=== PATIENT | male | born 1960 | race Caucasian/White ===

== ENCOUNTER 2021-05-15 15:26 | Inpatient (IN) | payer MEDICARE, OTHER ==
[~2021-05-15] VITALS: Ht 182.9 cm; Wt 104.3 kg
[~2021-05-15 15:26] MED LIST: ACET325; GABA300T24; HYDHCL10EL; LIDO5TO; LISHYD1012
[2021-05-15] MEDS ORDERED: CYCL10 PO (15:53)
[2021-05-15 16:00] LABS: Hematocrit 39.3 % (37.0-53.0); Hemoglobin 13.1 g/dL (13.5-17.5); Mean Corpuscular HGB 27.5 pg (26.0-34.0); Mean Corpuscular HGB Conc 33.3 g/dL (31.5-36.5); Mean Corpuscular Volume 82 fL (80-100); Mean Platelet Volume 10.6 fL (9.1-12.4); Platelet Count 239 K/mm3 (150-400); RDW Coefficient Variation 14.6 % (11.7-14.2); RDW Standard Deviation 44.3 fL (35.1-46.3); Red Blood Cell Count 4.77 M/mm3 (4.30-5.90); White Blood Cell Count 26.21 K/mm3 (4.00-11.30)
[2021-05-15 16:13] LABS: Alanine Aminotransfer (ALT/SGP 16 U/L (12-78); Albumin, Blood 1.9 g/dL (3.4-5.0); Albumin/Globulin Ratio 0.4 (0.8-1.8); Alk Phos 207 U/L (50-136); Anion Gap 12 mmol/L (6-16); Aspartate Aminotrans (AST/SGOT 46 U/L (12-37); Blood Urea Nitrogen 29 mg/dL (8-24); Bun/Creatinine Ratio 25.4 (12.0-20.0); CO2, Blood 23 mmol/L (21-32); Calcium, Blood 8.5 mg/dL (8.5-10.1); Chloride, Blood 100 mmol/L (98-108); Creatinine, Blood 1.14 mg/dL (0.60-1.20); Globulin, Blood 4.7 g/dL (2.2-4.0); Glomerular Filtration Rate >60 (60-); Glucose, Blood 86 mg/dL (70-99); Potassium, Blood 2.8 mmol/L (3.5-5.5); Sodium, Blood 135 mmol/L (136-145); Total Protein, Blood 6.6 g/dL (6.4-8.2)
[2021-05-15 17:13] LABS: BAND PERCENT MAN 5 % (0-8); BASOPHILS PERCENT MAN 0 % (0-2); EOSINOPHILS PERCENT MAN 0 % (0-6); MONOCYTES ABSOLUTE MAN 1.57 K/mm3 (0.16-1.47); MONOCYTES PERCENT MAN 6 % (4-13); NEUTROPHILS ABSOLUTE MAN 24.63 K/mm3 (1.96-9.15); SEG NEUTROPHILS PERCENT MAN 89 % (41-73); TOTAL CELLS COUNTED 100
[2021-05-15 18:04] LABS: Bicarbonate Venous 28.1 mmol/L (24.0-30.0); PCO2 Venous 44.4 mmHg (38-42); PO2 Venous 52.4 mmHg (38-42); pH Blood Venous 7.43 (7.34-7.37)
--- NOTE | 2021-05-16 01:06 | NUR ---
PATIENT ARRIVED ONTO UNIT TODAY 05/16/21 AT 0000. COVID 19 PATIENT IS ALERT AND ORIENTED X4. PATIENT DID PRESENT WITH HIGH BP AND HR BUT WAS GIVEN IV METOPROLOL WHICH BROUGHT BOTH BACK DOWN. HE IS ON 5L NC AND HAS >90% OXYGEN SATS. HE HAS RIGHT SIDED WEAKNESS HE REPORTS FROM HAVING A NECK SURGERY "A WHILE AGO". HE IS ABLE TO WIGGLE FINGERS AND TOES WHEN ASKED. 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 HE IS CURRENTLY LAYING DOWN WITH EYES CLOSED. CALL LIGHT WITHIN REACH.
--- NOTE | 2021-05-16 03:37 | NUR ---
SHIFT SUMMARY: COVID 19 NO SIGNIFICANT CHANGES SINCE ARRIVAL TO THE UNIT. HE IS ALERT AND ORIENTED X4. HE HAS EXPIRATORY WHEEZING AND SOUNDS COARSE IN THE LUNGS. HE HAS A COUGH INTERMITTENTLY WITH SPUTUM. ENCOURAGING DEEP BREATHING AND COUGHING WHEN POSSIBLE. PATIENT DENIES CHEST PAIN. HE IS ON 5L NC WITH >90% OXYGEN SATS. PATIENT ALSO HAS WEAKNESS TO HIS RIGHT SIDE. TELE IS IN PLACE. PATIENT USES THE URNAL BY SELF PRN. HE IS CURRENTLY RESTING COMFORTABLY IN BED. CALL LIGHT WITHIN REACH.
[2021-05-16 06:19] LABS: Hematocrit 38.1 % (37.0-53.0); Hemoglobin 12.7 g/dL (13.5-17.5); Mean Corpuscular HGB 27.6 pg (26.0-34.0); Mean Corpuscular HGB Conc 33.3 g/dL (31.5-36.5); Mean Corpuscular Volume 83 fL (80-100); Mean Platelet Volume 9.9 fL (9.1-12.4); Platelet Count 242 K/mm3 (150-400); RDW Standard Deviation 45.1 fL (35.1-46.3); White Blood Cell Count 28.72 K/mm3 (4.00-11.30)
--- NOTE | 2021-05-16 06:29 | NUR ---
THIS NURSE CHECKED THE PATIENTS BP AFTER GIVING THE PATIENT A LOPRESSOR IV. PATIENTS BP WAS STILL ELEVATED. CALLED DR. VEGA FOR WHAT HE WANTED TO ORDER. 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 VEGA AGAIN AND HE PHYSICALLY CAME TO THE ROOM. DR. VEGA ORDERED AN EKG AND FOR THE PATIENT TO BE GIVEN TWO LOPRESSORS IV. PATIENT'S HR IS NOW AT 114 BPM WITH HIS BP DECREASED A SLIGHT AMOUNT. WILL CONTINUE TO MONITOR BP WELL HR ON THE HEART MONITOR. PATIENT WAS ASYMPTOMATIC DURING THE EPISODE OF >200 BPM. HE DENIED CHEST PAIN DURING THAT TIME. HE IS NOW LAYING IN BED WITH CALL LIGHT WITHIN REACH.
[2021-05-16 06:45] LABS: Alanine Aminotransfer (ALT/SGP 19 U/L (12-78); Albumin, Blood 1.8 g/dL (3.4-5.0); Albumin/Globulin Ratio 0.4 (0.8-1.8); Alk Phos 206 U/L (50-136); Anion Gap 8 mmol/L (6-16); Aspartate Aminotrans (AST/SGOT 43 U/L (12-37); Bilirubin, Total 0.7 mg/dL (0.1-1.0); Blood Urea Nitrogen 26 mg/dL (8-24); CO2, Blood 28 mmol/L (21-32); Chloride, Blood 102 mmol/L (98-108); Creatinine, Blood 0.93 mg/dL (0.60-1.20); Glomerular Filtration Rate >60 (60-); Glucose, Blood 98 mg/dL (70-99); Potassium, Blood 3.8 mmol/L (3.5-5.5); Sodium, Blood 138 mmol/L (136-145); Total Protein, Blood 6.8 g/dL (6.4-8.2)
[2021-05-16 06:55] LABS: BAND PERCENT MAN 4 % (0-8); BASOPHILS PERCENT MAN 0 % (0-2); EOSINOPHILS PERCENT MAN 0 % (0-6); LYMPHOCYTES % ATYPICAL MANUAL 1 % (0-0); LYMPHOCYTES ABSOLUTE MAN 1.72 K/mm3 (0.84-5.20); LYMPHOCYTES PERCENT MAN 5 % (21-46); MONOCYTES ABSOLUTE MAN 0.57 K/mm3 (0.16-1.47); MONOCYTES PERCENT MAN 2 % (4-13); MYELOCYTE ABSOLUTE MAN 0.28 K/mm3 (0.00-0.00); MYELOCYTE PERCENT MAN 1 % (0-0); NEUTROPHILS ABSOLUTE MAN 26.13 K/mm3 (1.96-9.15); SEG NEUTROPHILS PERCENT MAN 87 % (41-73); TOTAL CELLS COUNTED 100
--- NOTE | 2021-05-16 14:41 | NUR ---
[facility] referral received. EMR reviewed and spoke with studio operations engineer in charge in PCU. It appears transfer being worked on to [facility]. Pt asleep in room with high flow O2 on. Will attempt visit if pt is not transferred. I did not contact due to notes stating pt wanted to discuss his current health status/concerns with her prior to providers speaking with her. If pt remains at [facility] I will offer to call or do conference call to help update her and answer questions, discuss advanced care planning wishes.
--- NOTE | 2021-05-16 15:46 | NUR ---
echocardiogram complete
--- NOTE | 2021-05-16 18:27 | NUR ---
SHIFT SUMMARY PT HAS HAD NO SIGNIFICANT CHANGES T/O SHIFT. O2 REMAINS STABLE AT 95% ON 6L O2 VIA NC. NO INCREASED WOB, LUNGS DIM IN BASES, WORSE ON R SIDE. PT TO GO FOR PE R/O THIS EVENING. PLAN IS FOR PT TO CONTINUE ON IV ABX AND GO TO [facility] WHEN BED AVAILABLE.
--- NOTE | 2021-05-17 03:09 | NUR ---
SHIFT SUMMARY: COVID 19 PATIENT IS ALERT AND ORIENTED X4. HE IS STILL HAVING SOME EXPIRATORY WHEEZING AND SOUNDS COURSE IN THE LUNGS. PATIENT IS STILL COUGHING UP SCANT AMOUNTS OF SPUTUM INTERMITTENTLY. PATIENTS HR STILL WILL COME UP TO 160 BPM WHEN URINATING OR CHANGING POSITIONS. IV LOPRESSOR HAS BEEN GIVEN TO MAINTAIN A LOWER HR. HE REPORTS "FEELING BETTER TODAY THAN YESTERDAY". HE STILL HAS HIS RIGHT SIDED WEAKNESS. TELE IS IN PLACE. PATIENT USES URNAL PRN. CALL LIGHT WITHIN REACH. TELE IS IN PLACE. THE PATIENT WILL BE TRANSFERRING TO [facility] LATER TODAY.
[2021-05-17 05:10] LABS: BASOPHILS ABSOLUTE AUTO 0.13 K/mm3 (0.00-0.23); BASOPHILS PERCENT AUTO 1 % (0-2); Hematocrit 38.7 % (37.0-53.0); Hemoglobin 12.7 g/dL (13.5-17.5); LYMPHOCYTES ABSOLUTE AUTO 1.37 K/mm3 (0.84-5.20); LYMPHOCYTES PERCENT AUTO 5 % (21-46); MONOCYTES ABSOLUTE AUTO 1.37 K/mm3 (0.16-1.47); MONOCYTES PERCENT AUTO 5 % (4-13); Mean Corpuscular HGB 27.4 pg (26.0-34.0); Mean Corpuscular HGB Conc 32.8 g/dL (31.5-36.5); Mean Corpuscular Volume 83 fL (80-100); Mean Platelet Volume 9.8 fL (9.1-12.4); Platelet Count 269 K/mm3 (150-400); RDW Coefficient Variation 15.4 % (11.7-14.2); RDW Standard Deviation 46.6 fL (35.1-46.3); Red Blood Cell Count 4.64 M/mm3 (4.30-5.90); White Blood Cell Count 25.93 K/mm3 (4.00-11.30)
[2021-05-17 05:11] LABS: EOSINOPHILS PERCENT AUTO 0 % (0-6); IMMATURE GRAN ABSOLUTE AUTO 0.68 K/mm3 (0.00-0.10); IMMATURE GRAN PERCENT AUTO 3 % (0-1); NEUTROPHILS ABSOLUTE AUTO 22.38 K/mm3 (1.96-9.15); NEUTROPHILS PERCENT AUTO 86 % (41-73)
[2021-05-17 05:35] LABS: Alanine Aminotransfer (ALT/SGP 14 U/L (12-78); Albumin, Blood 1.6 g/dL (3.4-5.0); Albumin/Globulin Ratio 0.3 (0.8-1.8); Alk Phos 192 U/L (50-136); Anion Gap 3 mmol/L (6-16); Aspartate Aminotrans (AST/SGOT 27 U/L (12-37); Bilirubin, Total 0.5 mg/dL (0.1-1.0); Blood Urea Nitrogen 29 mg/dL (8-24); Bun/Creatinine Ratio 37.4 (12.0-20.0); CO2, Blood 30 mmol/L (21-32); Calcium, Blood 8.5 mg/dL (8.5-10.1); Chloride, Blood 102 mmol/L (98-108); Creatinine, Blood 0.78 mg/dL (0.60-1.20); Globulin, Blood 4.9 g/dL (2.2-4.0); Glomerular Filtration Rate >60 (60-); Glucose, Blood 101 mg/dL (70-99); Potassium, Blood 4.5 mmol/L (3.5-5.5); Sodium, Blood 135 mmol/L (136-145); Total Protein, Blood 6.5 g/dL (6.4-8.2)
[2021-05-17 06:35] LABS: BAND PERCENT MAN 5 % (0-8); BASOPHILS PERCENT MAN 0 % (0-2); EOSINOPHILS PERCENT MAN 0 % (0-6); LYMPHOCYTES ABSOLUTE MAN 1.81 K/mm3 (0.84-5.20); LYMPHOCYTES PERCENT MAN 7 % (21-46); MONOCYTES PERCENT MAN 0 % (4-13); NEUTROPHILS ABSOLUTE MAN 24.11 K/mm3 (1.96-9.15); SEG NEUTROPHILS PERCENT MAN 88 % (41-73); TOTAL CELLS COUNTED 100
--- NOTE | 2021-05-17 14:31 | NUR ---
SVT: AT ABOUT 1300 RECEIVED A CALL FROM [employer]. PT HAVING SVT WITH HR 150-160. UPON ASSESSMENT, PT DENIES CP, REPORTS ASYMPTOMATIC. VSS. HASHER OPERATOR REPORTED AT ABOUT 1308 THAT PT HR BACK TO 90-[address] HOFFMAN NOTIFIED, NO NEW ORDERS. WILL CTM.
--- NOTE | 2021-05-17 17:11 | NUR ---
SUMMARY: PT IS A/O, VSS. NO ACUTE CHANGE IN TELE SINCE PT HAD SVT. PT CONTINUES TO BE WEAK AND NEEDS ASSISTANCE WITH TURNING. ABLE TO WEAN PT TO 3L O2 VIA NC, SP02 95%. PT AWAITING TANSFER TO [facility] PENDING. WILL CTM AND REPORT TO GIANCARLO RN.
[2021-05-18 05:09] LABS: BASOPHILS ABSOLUTE AUTO 0.11 K/mm3 (0.00-0.23); BASOPHILS PERCENT AUTO 0 % (0-2); EOSINOPHILS PERCENT AUTO 0 % (0-6); Hematocrit 37.1 % (37.0-53.0); Hemoglobin 12.1 g/dL (13.5-17.5); IMMATURE GRAN ABSOLUTE AUTO 0.88 K/mm3 (0.00-0.10); IMMATURE GRAN PERCENT AUTO 3 % (0-1); LYMPHOCYTES ABSOLUTE AUTO 1.27 K/mm3 (0.84-5.20); LYMPHOCYTES PERCENT AUTO 5 % (21-46); MONOCYTES ABSOLUTE AUTO 1.46 K/mm3 (0.16-1.47); MONOCYTES PERCENT AUTO 5 % (4-13); Mean Corpuscular HGB 27.3 pg (26.0-34.0); Mean Corpuscular HGB Conc 32.6 g/dL (31.5-36.5); Mean Corpuscular Volume 84 fL (80-100); Mean Platelet Volume 9.9 fL (9.1-12.4); NEUTROPHILS PERCENT AUTO 87 % (41-73); Platelet Count 282 K/mm3 (150-400); RDW Coefficient Variation 15.1 % (11.7-14.2); RDW Standard Deviation 46.2 fL (35.1-46.3); Red Blood Cell Count 4.43 M/mm3 (4.30-5.90); White Blood Cell Count 27.42 K/mm3 (4.00-11.30)
[2021-05-18 05:29] LABS: Albumin, Blood 1.6 g/dL (3.4-5.0); Anion Gap 4 mmol/L (6-16); Blood Urea Nitrogen 29 mg/dL (8-24); Bun/Creatinine Ratio 42.4 (12.0-20.0); CO2, Blood 28 mmol/L (21-32); Calcium, Blood 7.7 mg/dL (8.5-10.1); Chloride, Blood 104 mmol/L (98-108); Creatinine, Blood 0.68 mg/dL (0.60-1.20); Glomerular Filtration Rate >60 (60-); Glucose, Blood 105 mg/dL (70-99); Phosphorus, Blood 3.2 mg/dL (2.5-4.9); Potassium, Blood 4.3 mmol/L (3.5-5.5); Sodium, Blood 136 mmol/L (136-145)
--- NOTE | 2021-05-18 06:34 | NUR ---
SUMMARY PT REMAINS OF 3L N/C.PENDING EVENTUAL TRANSFER TO [facility], BUT HAVE NOT RECEIVED WORD OF WHEN ROOM MAY BECOME AVAILABLE.
[2021-05-18 09:56] LABS: SARS-Cov-2 (COVID-19) PCR, MMC NEGATIVE (NEGATIVE)
[2021-05-18 11:45] LABS: Vancomycin, Trough 13.2 ug/mL (5.0-10.0)
--- NOTE | 2021-05-18 16:56 | NUR ---
TRANSFER SUMMARY: PATIENT WASTRANSFERED VIA [facility] VIA STRETCHER ON 3 L VIA AL AT 1319. PATIENT DENIES CHEST PAIN, FERRIS RESOLVED. VANCO RUNNING PUMP WAS GIVEN TO BRING BACK, PATIENT PERSONAL BELONGINGS SENT WITH PATIENT. PATIENT WAS ALERT AND ORIENTED, UNDERSTOOD WHY HE WAS BEING TRANSFERRED TO [place]. PATIENT HAD NO FURTHER QUESTIONS OR CONCERNS.
== END 2021-05-18 13:19 | DRG 871 ==
LOC: ER 15:26 → ERHOLD 19:43 → SURS 19:43
PROVIDERS: Family Medicine; Nurse Practitioner Acute Care; Pharmacist; Student in an Organized Health Care Education/Training Program; ADMIT Hospitalist
PROC: 3E0333Z Introduction of Anti-inflammatory into Peripheral Vein, Percutaneous Approach (ICD-10-PCS; principal; 2021-05-15)
DX: A41.89 Other specified sepsis (principal); U07.1 COVID-19; J12.82 Pneumonia due to coronavirus disease 2019; J96.01 Acute respiratory failure with hypoxia; J86.9 Pyothorax without fistula; C15.4 Malignant neoplasm of middle third of esophagus; I47.2 Ventricular tachycardia; K92.1 Melena; E87.1 Hypo-osmolality and hyponatremia; L02.213 Cutaneous abscess of chest wall; I24.8 Other forms of acute ischemic heart disease; C72.0 Malignant neoplasm of spinal cord; R65.20 Severe sepsis without septic shock; D72.829 Elevated white blood cell count, unspecified; J45.909 Unspecified asthma, uncomplicated; T38.0X5A Adverse effect of glucocorticoids and synthetic analogues, initial encounter; E87.6 Hypokalemia; K59.00 Constipation, unspecified; E66.9 Obesity, unspecified; I10 Essential (primary) hypertension; D63.8 Anemia in other chronic diseases classified elsewhere; G89.29 Other chronic pain; B95.61 Methicillin susceptible Staphylococcus aureus infection as the cause of diseases classified elsewhere; M54.9 Dorsalgia, unspecified; Z77.090 Contact with and (suspected) exposure to asbestos; Z87.891 Personal history of nicotine dependence; Z88.0 Allergy status to penicillin; Z98.890 Other specified postprocedural states; Z68.31 Body mass index [BMI] 31.0-31.9, adult
CPT/HCPCS: 36415; 70496; 70498; 71045; 71250; 71260; 80053; 80069; 80202; 82272; 82378; 82803; 82947; 83605; 83735; 83880; 84145; 84484; 85025; 85379; 87040; 87077; 87147; 87186; 93005; 93010; 93306; 96365-59; 96375-59; 99285-25; A9270; C9113; J0692; J1100; J1650; J2405; J2765; J3010; J3370; J3475; J3480; J7030; J7050; Q9967; U0004

== ENCOUNTER 2021-08-12 20:41 | Emergency (ER) | payer MEDICARE, OTHER ==
[~2021-08-12] VITALS: Ht 180.3 cm; Wt 95.7 kg
[~2021-08-12 20:41] MED LIST changes: +CYCL10 PO
[2021-08-12 22:11] LABS: BASOPHILS ABSOLUTE AUTO 0.08 K/mm3 (0.00-0.23); BASOPHILS PERCENT AUTO 1 % (0-2); EOSINOPHILS ABSOLUTE AUTO 0.26 K/mm3 (0.00-0.68); EOSINOPHILS PERCENT AUTO 2 % (0-6); Hematocrit 36.3 % (37.0-53.0); Hemoglobin 11.9 g/dL (13.5-17.5); IMMATURE GRAN ABSOLUTE AUTO 0.23 K/mm3 (0.00-0.10); IMMATURE GRAN PERCENT AUTO 2 % (0-1); LYMPHOCYTES PERCENT AUTO 8 % (21-46); MONOCYTES ABSOLUTE AUTO 1.15 K/mm3 (0.16-1.47); MONOCYTES PERCENT AUTO 8 % (4-13); Mean Corpuscular HGB Conc 32.8 g/dL (31.5-36.5); Mean Corpuscular Volume 89 fL (80-100); Mean Platelet Volume 10.2 fL (9.1-12.4); NEUTROPHILS ABSOLUTE AUTO 11.36 K/mm3 (1.96-9.15); NEUTROPHILS PERCENT AUTO 80 % (41-73); Platelet Count 273 K/mm3 (150-400); RDW Coefficient Variation 14.1 % (11.7-14.2); RDW Standard Deviation 45.8 fL (35.1-46.3); White Blood Cell Count 14.18 K/mm3 (4.00-11.30)
[2021-08-12 22:30] LABS: Alanine Aminotransfer (ALT/SGP 9 U/L (12-78); Albumin, Blood 2.2 g/dL (3.4-5.0); Albumin/Globulin Ratio 0.5 (0.8-1.8); Alk Phos 103 U/L (50-136); Anion Gap 7 mmol/L (6-16); Aspartate Aminotrans (AST/SGOT 11 U/L (12-37); Bilirubin, Total 0.4 mg/dL (0.1-1.0); Blood Urea Nitrogen 14 mg/dL (8-24); Bun/Creatinine Ratio 14.7 (12.0-20.0); CO2, Blood 24 mmol/L (21-32); Calcium, Blood 8.6 mg/dL (8.5-10.1); Chloride, Blood 106 mmol/L (98-108); Creatinine, Blood 0.95 mg/dL (0.60-1.20); Globulin, Blood 4.4 g/dL (2.2-4.0); Glomerular Filtration Rate >60 (60-); Glucose, Blood 117 mg/dL (70-99); Potassium, Blood 4.3 mmol/L (3.5-5.5); Sodium, Blood 137 mmol/L (136-145); Total Protein, Blood 6.6 g/dL (6.4-8.2)
== END 2021-08-13 00:45 | disposition home or self-care (01) ==
LOC: ER 20:41
PROVIDERS: Physician Assistant
DX: A04.72 Enterocolitis due to Clostridium difficile, not specified as recurrent (principal); Z88.0 Allergy status to penicillin
CPT/HCPCS: 71045; 80053; 83605; 85025; 86850; 86900; 86901; 99283-25; J7120

== ENCOUNTER 2021-09-08 16:38 | Emergency (ER) | payer MEDICARE, OTHER ==
[~2021-09-08] VITALS: Ht 180.3 cm; Wt 94.8 kg
[2021-09-08 17:12] LABS: BASOPHILS ABSOLUTE AUTO 0.05 K/mm3 (0.00-0.23); BASOPHILS PERCENT AUTO 0 % (0-2); EOSINOPHILS ABSOLUTE AUTO 0.14 K/mm3 (0.00-0.68); EOSINOPHILS PERCENT AUTO 1 % (0-6); Hematocrit 37.1 % (37.0-53.0); Hemoglobin 12.1 g/dL (13.5-17.5); IMMATURE GRAN ABSOLUTE AUTO 0.12 K/mm3 (0.00-0.10); IMMATURE GRAN PERCENT AUTO 1 % (0-1); LYMPHOCYTES ABSOLUTE AUTO 1.23 K/mm3 (0.84-5.20); LYMPHOCYTES PERCENT AUTO 6 % (21-46); MONOCYTES ABSOLUTE AUTO 2.25 K/mm3 (0.16-1.47); MONOCYTES PERCENT AUTO 11 % (4-13); Mean Corpuscular HGB 28.9 pg (26.0-34.0); Mean Corpuscular HGB Conc 32.6 g/dL (31.5-36.5); Mean Corpuscular Volume 89 fL (80-100); Mean Platelet Volume 10.3 fL (9.1-12.4); NEUTROPHILS ABSOLUTE AUTO 16.52 K/mm3 (1.96-9.15); NEUTROPHILS PERCENT AUTO 81 % (41-73); Platelet Count 196 K/mm3 (150-400); RDW Coefficient Variation 15.3 % (11.7-14.2); RDW Standard Deviation 50.7 fL (35.1-46.3); Red Blood Cell Count 4.18 M/mm3 (4.30-5.90); White Blood Cell Count 20.31 K/mm3 (4.00-11.30)
[2021-09-08 17:24] LABS: Albumin, Blood 2.6 g/dL (3.4-5.0); Albumin/Globulin Ratio 0.7 (0.8-1.8); Bilirubin, Total 0.6 mg/dL (0.1-1.0); Bun/Creatinine Ratio 17.8 (12.0-20.0); Calcium, Blood 8.5 mg/dL (8.5-10.1); Creatinine, Blood 1.29 mg/dL (0.60-1.20); Globulin, Blood 3.8 g/dL (2.2-4.0); Potassium, Blood 3.6 mmol/L (3.5-5.5); Total Protein, Blood 6.4 g/dL (6.4-8.2)
[2021-09-08 20:09] LABS: C DIFFICILE DNA Positive (Negative)
[2021-09-08] MEDS ORDERED: Vancocin HCl125 MG PO (20:45)
== END 2021-09-08 21:15 | disposition home or self-care (01) ==
LOC: ER 16:38
PROVIDERS: Physician Assistant
DX: A04.72 Enterocolitis due to Clostridium difficile, not specified as recurrent (principal); Z88.0 Allergy status to penicillin
CPT/HCPCS: 80053; 85025; 87324; 87493; A9270